=== PATIENT | male | born 1985 | race Asian ===

== ENCOUNTER 2016-12-05 12:25 | Emergency (ER) | payer OTHER ==
[~2016-12-05] VITALS: Ht 182.9 cm; Wt 97.0 kg
[2016-12-05] MEDS ORDERED: ONDANSETRON 2MG/ML, 2ML ONE (12:57)
[2016-12-05] MEDS ORDERED: FAMOTIDINE 20 MG/2 ML ONE (12:57)
[2016-12-05] MEDS ORDERED: HYDROmorphone 1 MG/ML, 1ML ONE ×2 (12:57→14:32)
[2016-12-05] MEDS ORDERED: SODIUM CHLORIDE 0.9% 1,000 ML IV ONE (12:58)
[2016-12-05] MEDS ORDERED: SODIUM CHLORIDE 0.9% 1,000ML IVBOLUS ONE (13:00)
[2016-12-05] MEDS ORDERED: FAMOTIDINE 20 MG/2 ML IVP ONE (13:00)
[2016-12-05] MEDS ORDERED: ONDANSETRON 2MG/ML, 2ML IVPush ONE (13:00)
[2016-12-05] MEDS: HYDROmorphone 1 MG/ML, 1ML IVPush PRN ×2 (13:02→14:37)
[2016-12-05 13:24] LABS: ASPARTATE AMINO TRANSFERASE 33 U/L (15-37); BLOOD UREA NITROGEN 14 mg/dL (7-18)
[2016-12-05 13:43] LABS: IS PT STATUS REG ER OR PRE ER? YES
[2016-12-05] MEDS ORDERED: PROMETHAZINE 25 MG/ML, 1ML ONE (14:46)
[2016-12-05] MEDS ORDERED: PROMETHAZINE 25 MG/ML, 1ML IM ONE (15:00)
[2016-12-05 16:25] VITALS: BP 126/82
== END 2016-12-05 16:31 | disposition home or self-care (01) ==
LOC: ED 16:25
DX: K51.90 Ulcerative colitis, unspecified, without complications (principal); R10.84 Generalized abdominal pain; J18.9 Pneumonia, unspecified organism; Z87.891 Personal history of nicotine dependence
CPT/HCPCS: 36415; 71010; 74177; 80053; 81001; 83605; 83690; 84145; 84484; 85025; 87040; 93005; 96361; 96372; 96374; 96375; 96376; 99285; J1170; J2405; J2550; J7030; S0028